=== PATIENT | female | born 1975 | race Caucasian/White ===

== ENCOUNTER → 2021-07-12 11:40 | Outpatient (BNVA) | payer OTHER, SELFPAY | PROVIDERS: Referring Provider Nurse Practitioner Family; Visit Provider Nurse Practitioner Family | DX: M79.671 Pain in right foot (principal) | CPT/HCPCS: 73630 ==

== ENCOUNTER → 2024-04-12 10:46 | Outpatient (BNVA) | payer OTHER, SELFPAY | PROVIDERS: PCP Nurse Practitioner; Visit Provider Nurse Practitioner | DX: R53.83 Other fatigue (principal); E04.9 Nontoxic goiter, unspecified | CPT/HCPCS: 80053; 83036; 84443; 85025 ==

== ENCOUNTER 2024-05-10 09:51 | Outpatient (CLI) | payer OTHER, SELFPAY ==
--- NOTE | 2024-05-10 10:00 | US_ITS ---
WS: [id number] ULTRASOUND THYROID TECHNIQUE: Ultrasound of the thyroid. CLINICAL INFORMATION: E04.9 - Nontoxic goiter, unspecified COMPARISON: None. FINDINGS: Thyroid: Mild thyroid enlargement. Right thyroid lobe: 5.2 cm x 1.5 cm x 1.8 cm Volume 6.5 cc Cystic nodule RIGHT mid thyroid measuring 1.1 x 0.6 x 1.3 cm with comet tail artifact Left thyroid lobe: 4.5 cm x 1.5 cm x 1.5 cm. Volume 4.8 cc Incidental small LEFT thyroid cyst measuring 3 mm Isthmus: 0.4 mm. Cervical lymphadenopathy: A few slightly prominent but normal-appearing LEFT cervical lymph nodes US/US thyroid [id number] IMPRESSION: 1. Mild thyroid enlargement 2. Cystic nodule RIGHT mid thyroid measuring 1.1 x 0.6 x 1.3 cm with comet aleta l artifact. TIRADS Category 1: Benign (total points = 0) No FNA
== END 2024-05-10 09:52 | disposition home or self-care (01) ==
LOC: RAD 09:52
PROVIDERS: PCP Nurse Practitioner; Visit Provider Nurse Practitioner
DX: E04.9 Nontoxic goiter, unspecified (principal)
CPT/HCPCS: 76536